=== PATIENT | male | born 1995 | race Caucasian/White ===

== ENCOUNTER 2018-01-03 15:17 | Emergency (ER) | payer BC ==
--- NOTE | 2018-01-03 16:36 | UC ---
Throat Pain/Nasal Chris HPI - HPI Summary HPI Summary: Sore throat for 3 days no fevers no cough - History of Current Complaint Chief Complaint: UCRespiratory Stated Complaint: SORE THROAT Time Seen by Provider: 01/03/18 16:24 Hx Obtained From: Patient Onset/Duration: Sudden Onset Severity: Moderate Pain Intensity: 6 Pain Scale Used: 0-10 Numeric Cough: None - Allergies/Home Medications Allergies/Adverse Reactions: Allergies Allergy/AdvReac Type Severity Reaction Status Date / Time No Known Allergies Allergy Verified 01/03/18 16:01 PMH/Surg Hx/FS Hx/Imm Hx Previously Healthy: Yes - Surgical History Surgical History: Yes Surgery Procedure, Year, and Place: RIGHT elbow. 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 - Family History Known Family History: Positive: None - Social History Occupation: Student Lives: Dormitory/Roommates Alcohol Use: Weekly Alcohol Amount: weekends Substance Use Type: None Smoking Status (MU): Never Smoked Tobacco Review of Systems Constitutional: Negative Skin: Negative Eyes: Negative ENT: Sore Throat Respiratory: Negative Cardiovascular: Negative Gastrointestinal: Negative Genitourinary: Negative Motor: Negative Neurovascular: Negative Musculoskeletal: Negative Neurological: Negative Psychological: Negative Is Patient Immunocompromised?: No All Other Systems Reviewed And Are Negative: Yes Physical Exam Triage Information Reviewed: Yes Appearance: Well-Appearing, No Pain Distress, Well-Nourished Vital Signs: Initial Vital Signs Temp 98.2 F 01/03/18 16:01 Pulse 77 01/03/18 16:01 Resp 16 01/03/18 16:01 BP 149/71 01/03/18 16:01 Pulse Ox 98 01/03/18 16:01 Vital Signs Reviewed: Yes Eye Exam: Normal Eyes: Positive: Conjunctiva Clear ENT Exam: Normal ENT: Positive: Normal ENT inspection, Hearing grossly normal, Pharyngeal erythema, TMs normal, Uvula midline. Negative: Nasal congestion, Nasal drainage , Tonsillar swelling, Tonsillar exudate, Trismus, Muffled voice, Hoarse voice, Dental tenderness, Sinus tenderness Dental Exam: Normal Neck exam: Normal Neck: Positive: Supple, Nontender, No Lymphadenopathy Respiratory Exam: Normal Respiratory: Positive: Chest non-tender, Lungs clear, Normal breath sounds, No respiratory distress, No accessory muscle use Cardiovascular Exam: Normal Cardiovascular: Positive: RRR, No Murmur, Pulses Normal, Brisk Capillary Refill Musculoskeletal Exam: Normal Musculoskeletal: Positive: Strength Intact, ROM Intact, No Edema Neurological Exam: Normal Neurological: Positive: Alert, Muscle Tone Normal Psychological Exam: Normal Skin Exam: Normal Diagnostics - Laboratory Diagnostic Studies Completed/Ordered: Rapid strep test positive Throat Pain/Nasal Course/Dx - Course Assessment/Plan: Amoxicillin, ibuprofen Tylenol may use [id number] throat sprays and lozenges for symptom relief, follow up with [facility] as needed - Differential Dx/Diagnosis Provider Diagnoses: Strep pharyngitis Discharge - Sign-Out/Discharge Documenting (check all that apply): Discharge - Discharge Plan Condition: Stable Disposition: HOME Prescriptions: Amoxicillin PO (*) [Amoxicillin 875 MG (*)] 875 mg PO BID #20 tab Patient Education Materials: Strep Throat (ED) Forms: *School Release Referrals: [facility] [Outside] - If Needed - Billing Disposition and Condition Condition: STABLE Disposition: HOME
== END 2018-01-03 16:47 | disposition home or self-care (01) ==
LOC: UCCORT 15:17
DX: J02.0 Streptococcal pharyngitis (principal)
CPT/HCPCS: 87651; 99202; G0463

== ENCOUNTER 2018-10-16 20:56 | Emergency (ER) | payer BC ==
[2018-10-16 21:10] VITALS: BP 159/80
--- NOTE | 2018-10-16 21:26 | UC ---
Complaint Male HPI - HPI Summary HPI Summary: 22-year-old male comes to clinic today with a chief complaint of testicular pain. Several hours ago patient started with scrotal pain worse on the left than the right. He was wearing rather tight pants from the pain started. No known trauma otherwise. Denies any concern of STI's not had any burning with urination or any penile dish discharge or lesions. No fevers or chills. Pain is worse with movement better with rest. pain about a 6 out of 10 at rest. - History of Current Complaint Chief Complaint: UCGU Stated Complaint: PERSONAL Time Seen by Provider: 10/16/18 21:10 Pain Intensity: 6 - Allergies/Home Medications Allergies/Adverse Reactions: Allergies Allergy/AdvReac Type Severity Reaction Status Date / Time No Known Allergies Allergy Verified 10/16/18 21:10 Home Medications: Home Medications Oral Acne Medication DAILY 10/16/18 [History] PMH/Surg Hx/FS Hx/Imm Hx Previously Healthy: Yes - Surgical History Surgical History: Yes Surgery Procedure, Year, and Place: RIGHT elbow. 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 Negative: Dysuria, Vaginal/Penile Discharge Motor: Positive: Negative Neurovascular: Positive: Negative Musculoskeletal: Positive: Negative Neurological: Positive: Negative Psychological: Positive: Negative Is Patient Immunocompromised?: No Physical Exam Triage Information Reviewed: Yes Appearance: Well-Appearing, No Pain Distress, Well-Nourished Vital Signs: Initial Vital Signs Temp 99.1 F 10/16/18 21:05 Pulse 95 10/16/18 21:05 Resp 16 10/16/18 21:05 BP 159/80 10/16/18 21:05 Pulse Ox 100 10/16/18 21:05 Vital Signs Reviewed: Yes Eye Exam: Normal Eyes: Positive: Conjunctiva Clear Neck exam: Normal Neck: Positive: Supple Respiratory: Positive: Lungs clear, Normal breath sounds, No respiratory distress Cardiovascular: Positive: RRR Abdomen Description: Positive: Nontender, Soft Bowel Sounds: Positive: Present Male Genital Exam: Positive: Normal Genitalia, No Hernia, Other - On scrotal examination there was no abnormal masses. Testicles are both smooth and nontender to gentle palpation. On examination the patient reports the pain is more in the posterior aspect of the scrotum. On examination I did not detect any swelling.. Negative: Urethral Discharge Musculoskeletal: Positive: Strength Intact, ROM Intact Neurological Exam: Normal Neurological: Positive: Alert, Muscle Tone Normal Psychological Exam: Normal Psychological: Positive: Age Appropriate Behavior Skin Exam: Normal Complaint Male Course/Dx - Course Course Of Treatment: I a discussed the examination and the differential diagnosis of the patient's symptoms with the patient. At this time we do not have ultrasound and I discussed getting an ultrasound the patient is going to go to the emergency department for further evaluation of his scrotal and testicular pain. With a [place] emergency medicine provider. - Differential Dx/Diagnosis Provider Diagnosis: Testicular/scrotal pain Discharge - Sign-Out/Discharge Documenting (check all that apply): Patient Departure All imaging exams completed and their final reports reviewed: No Studies - Discharge Plan Condition: Stable Disposition: HOME-RECOMMEND TO ED Patient Education Materials: Testicle Pain (ED), Scrotal Pain (ED) Referrals: [facility] [[facility]] [facility] [[facility]] Additional Instructions: GO DIRECTLY TO THE EMERGENCY DEPARTMENT FOR FURTHER EVALUATION. - Billing Disposition and Condition Condition: STABLE Disposition: Home-Recommend to ED
== END 2018-10-16 21:35 | disposition home health service (06) ==
LOC: UCCORT 20:56
DX: N50.812 Left testicular pain (principal); N50.811 Right testicular pain
CPT/HCPCS: 99212; G0463

== ENCOUNTER 2019-02-03 13:14 | Emergency (ER) | payer BC ==
[2019-02-03 13:29] VITALS: BP 151/58
--- NOTE | 2019-02-03 13:43 | UC ---
FLU HPI - HPI Summary HPI Summary: 23-year-old male presents with one-day history of chills, fatigue, nasal congestion, and mild sore throat. Denies fever, ear pain, dysphagia, cough, chest pain, shortness of breath, abdominal pain, nausea, or vomiting. - History of Current Complaint Chief Complaint: UCGeneralIllness Stated Complaint: CONGESTION, SWEATS/CHILLS Time Seen by Provider: 02/03/19 13:27 Hx Obtained From: Patient Pain Intensity: 0 - Allergy/Home Medications Allergies/Adverse Reactions: Allergies Allergy/AdvReac Type Severity Reaction Status Date / Time No Known Allergies Allergy Verified 02/03/19 13:25 Home Medications: Home Medications Ibuprofen TAB* [Motrin TAB* 600 MG] 600 mg PO Q6H PRN 02/03/19 [History Confirmed 02/03/19] PMH/Surg Hx/FS Hx/Imm Hx Previously Healthy: Yes - Denies sifnificant PMH - Surgical History Surgical History: Yes Surgery Procedure, Year, and Place: RIGHT elbow. 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 Negative: Fever Skin: Negative: Rash Eyes: Negative: Drainage, Eye Redness ENT: Positive: Sore Throat, Nasal Discharge, Sinus Congestion. Negative: Ear Ache, Sinus Pain/Tenderness Respiratory: Negative: Shortness Of Breath, Cough Cardiovascular: Negative: Palpitations, Chest Pain Gastrointestinal: Negative: Abdominal Pain, Vomiting, Diarrhea, Nausea Genitourinary: Positive: Negative Musculoskeletal: Positive: Negative Neurological: Positive: Negative Is Patient Immunocompromised?: No Physical Exam - Summary Physical Exam Summary: GENERAL APPEARANCE: Well developed, well nourished, alert and cooperative, and appears to be in no acute distress. EYES: Conjunctiva clear. No drainage. EARS: External auditory canals and tympanic membranes clear, hearing grossly intact. NOSE: Mild-moderate nasal congestion. THROAT: Pharyngeal erythema. Post-nasal drip. No tonsilar inflammation, swelling , exudate, or lesions. Uvula midline. Oral cavity normal. Teeth and gingiva in good general condition. NECK: Neck supple, non-tender without lymphadenopathy. CARDIAC: Normal S1 and S2. No S3, S4 or murmurs. Rhythm is regular. There is no peripheral edema, cyanosis or pallor. Extremities are warm and well perfused. Capillary refill is less than 2 seconds. Peripheral pulses intact. LUNGS: Clear to auscultation without rales, rhonchi, wheezing or diminished breath sounds. ABDOMEN: Positive bowel sounds. Soft, nondistended, nontender. No guarding or rebound. No masses or hepatosplenomegally. MUSKULOSKELETAL: ROM intact to all extremities. No joint erythema or tenderness. Normal muscular development. Normal gait. SKIN: Skin normal color, texture and turgor with no lesions or eruptions. Triage Information Reviewed: Yes Vital Signs: Initial Vital Signs Temp 98.1 F 02/03/19 13:25 Pulse 75 02/03/19 13:25 Resp 16 02/03/19 13:25 BP 151/58 02/03/19 13:25 Pulse Ox 98 02/03/19 13:25 Vital Signs Reviewed: Yes Flu Course/Dx - Course Course Of Treatment: 23-year-old male presents with one-day history of chills, fatigue, nasal congestion, and mild sore throat. Denies fever, ear pain, dysphagia, cough, chest pain, shortness of breath, abdominal pain, nausea, or vomiting. Afebrile. Hypertensive otherwise vital signs stable. Exam revealed mild to moderate nasal congestion, postnasal drip, pharyngeal erythema without tonsillar swelling, exudate, or cervical lymphadenopathy. Suspect a viral upper respiratory infection. Recommending symptomatic treatment. He is to follow-up here or with his primary care provider in 3-5 days if symptoms do not improve. Anticipatory guidance and warning symptoms were reviewed with the patient. Verbalizes understanding and agrees with plan of care. - Differential Dx/Diagnosis Differential Diagnosis/HQI/PQRI: Bronchitis, Influenza, Pneumonia, Upper Respiratory Infection Provider Diagnosis: URI (upper respiratory infection) Discharge - Sign-Out/Discharge Documenting (check all that apply): Patient Departure All imaging exams completed and their final reports reviewed: No Studies - Discharge Plan Condition: Stable Disposition: HOME Patient Education Materials: Upper Respiratory Infection (ED) Referrals: No Primary Care Phys,NOPCP [Primary Care Provider] - Additional Instructions: Get plenty of rest. Drink plenty of fluids to avoid dehydration especially if you are running any fever. Take over the counter acetaminophen (Tylenol) or ibuprofen (Advil, Motrin) according to directions as needed for pain or fever. Use an over the counter decongestant such as Sudafed according to directions to help with the congestion. Use salt water gargles several times a day if you have a sore throat. You may also use Chloraseptic spray or Cepacol lonzenges according to directions which contain a numbing medication and can provide some temporary relief from your sore throat. Return here of follow up with your primary care provider in 3-5 days if symptoms do not improve. Your blood pressure was elevated in the clinic today. It is recommended that you have this rechecked by your primary care provider within 4 weeks. Seek immediate medical attention in the emergency room if you have fever greater than 100.5 F despite taking acetaminophen or ibuprofen, have chest pain , difficulty breathing, are unable to swallow, or have any worsening of symptoms. - Billing Disposition and Condition Condition: STABLE Disposition: Home
== END 2019-02-03 13:53 | disposition home or self-care (01) ==
LOC: UCCORT 13:14
DX: J06.9 Acute upper respiratory infection, unspecified (principal)
CPT/HCPCS: 99211; G0463